=== PATIENT | male | born 1960 | race Caucasian/White ===

== ENCOUNTER 2018-12-08 14:02 | Emergency (ER) | payer MEDICAID ==
[~2018-12-08] VITALS: Ht 177.8 cm; Wt 102.1 kg
--- NOTE | 2018-12-08 14:17 | NUR ---
PT IS IN ROOM #2B. DR SHIRLEY EVALUATED THE PT.
[2018-12-08] MEDS ORDERED: IBUPROFEN 600 MG TABLET ONE (14:24)
[2018-12-08] MEDS ORDERED: ACETAMINOPHEN ES 500 MG TABLET ONE (14:24)
[2018-12-08] MEDS ORDERED: IBUPROFEN 600 MG TABLET PO ONE (14:30)
[2018-12-08] MEDS ORDERED: ACETAMINOPHEN ES 500 MG TABLET PO ONE (14:30)
--- NOTE | 2018-12-08 15:10 | NUR ---
PT WAS D/C'd TO HOME AFTER DR SHIRLEY EVALUATION. D/C ISTRUCTIONS GIVEN TO THE PT.
[2018-12-08 15:12] VITALS: BP 142/77
== END 2018-12-08 15:12 | disposition home or self-care (01) ==
LOC: ER 14:02
DX: M71.561 Other bursitis, not elsewhere classified, right knee (principal)
CPT/HCPCS: A4663; A9150

== ENCOUNTER 2020-08-08 12:25 | Inpatient (IN) | payer MEDICAID, OTHER ==
[~2020-08-08] VITALS: Ht 177.8 cm; Wt 102.1 kg
[2020-08-08] MEDS ORDERED: GENTAMICIN SULFATE INJ 80 MG in IV DEXTROSE 5% 100 ML IV ONE (13:00)
[2020-08-08] MEDS ORDERED: VANCOMYCIN IV 1,000 MG in IV DEXTROSE 5% 250 ML IV ONE (13:00)
[2020-08-08] MEDS ORDERED: IOHEXOL 300MG/ML 100 ML INFUS..BTL ONE (13:04)
[2020-08-08] MEDS ORDERED: SWABABLE VALVE TRANSFER SET EA MC ONE (13:04)
[2020-08-08] MEDS ORDERED: IV NORMAL SALINE 250 ML IV ONE (13:04)
[2020-08-08] MEDS ORDERED: VANCOMYCIN IV 200 ML ONE (13:29)
[2020-08-08] MEDS ORDERED: GENTAMICIN SULFATE 80 MG/2 ML VIAL ONE (13:30)
--- NOTE | 2020-08-08 13:47 | NUR ---
Pt is in room #1a. dr Dozier evaluated the pt.
[2020-08-08 14:13] LABS: BILIRUBIN,DIRECT 0.2 mg/dL (0.0-0.2); BILIRUBIN,TOTAL 0.4 mg/dL (0.2-1.0); CREATININE 1.7 mg/dL (0.6-1.3); POTASSIUM 3.5 mmol/L (3.5-5.1)
[2020-08-08 14:28] LABS: BASOPHILS % (AUTO) 0.2 % (0.0-2.0); EOSINOPHILS % (AUTO) 0.3 % (0.0-7.0); HEMATOCRIT 45.9 % (36.7-47.1); HEMOGLOBIN 15.6 g/dL (12.5-16.3); LYMPHOCYTES # (AUTO) 0.7 K/uL (20.0-40.0); LYMPHOCYTES % (AUTO) 7.9 % (20.5-51.5); MEAN CORPUSCULAR HEMOGLOBIN 31.1 uug (23.8-33.4); MEAN CORPUSCULAR HGB CONC 34 g/dL (32.5-36.3); MEAN CORPUSCULAR VOLUME 91.3 fL (73.0-96.2); MONOCYTES # (AUTO) 0.7 K/uL (2.0-10.0); MONOCYTES % (AUTO) 8.1 % (0.0-11.0); NEUTROPHILS # (AUTO) 7.3 K/uL (1.8-8.9); NEUTROPHILS % (AUTO) 83.5 % (38.5-71.5); PLATELET COUNT (AUTO) 221 K/uL (152-348); RED BLOOD CELL COUNT(AUTO) 5.03 MIL/uL (4.06-5.63); WHITE BLOOD COUNT (AUTO) 8.8 K/uL (3.6-10.2)
[2020-08-08] MEDS ORDERED: IV NORMAL SALINE 1000 ML BAG IV ONE (14:45)
[2020-08-08] MEDS ORDERED: ACETAMINOPHEN 325 MG TABLET PO PRN (17:00)
[2020-08-08] MEDS ORDERED: ENOXAPARIN SODIUM 30 MG/0.3 ML DISP.SYRIN SUBCUT SCH (17:00)
[2020-08-08] MEDS ORDERED: ONDANSETRON 4 MG/2 ML VIAL IV PRN (17:00)
[2020-08-08] MEDS ORDERED: MORPHINE SULFATE 2 MG/1 ML DISP.SYRIN IV PRN (17:00)
[2020-08-08] MEDS ORDERED: ZOLPIDEM 5 MG TABLET PO PRN (17:00)
[2020-08-08] MEDS ORDERED: HYDROCODONE/APAP 5-325MG TABLET PO PRN (17:00)
[2020-08-08] MEDS ORDERED: ENOXAPARIN SODIUM 30 MG/0.3 ML DISP.SYRIN ONE (17:09)
--- NOTE | 2020-08-08 21:26 | NUR ---
transfered to 3rd floor med surg via wheelchair with no distress noted.
[2020-08-08 21:30] VITALS: BP 116/64
[2020-08-08] MEDS ORDERED: PIPERACILLIN SODIUM/TAZOBACTAM 3.375 G in IV DEXTROSE 5% 50 ML IV SCH (22:00)
[2020-08-08] MEDS: IV 1/2NS 1000 ML 1,000 ML IV PRN (22:34)
[2020-08-08] MEDS: DOCUSATE SODIUM 100 MG CAPSULE PO SCH (22:39)
[2020-08-08] MEDS: ACIDOPHILUS/BULGARICUS CHEW TAB PO SCH (22:39)
[2020-08-08] MEDS ORDERED: PIPERACILLIN/TAZOBACTAM/D5W 100 ML IV ONE (22:46)
[2020-08-08] MEDS: PIPERACILLIN SODIUM/TAZOBACTAM 3.375 G in IV DEXTROSE 5% 50 ML IV SCH (22:49)
--- NOTE | 2020-08-08 23:21 | NUR ---
Pt arrived in the unit at 2130. No acute distress noted. Denies pain/ discomfort. Due meds given as ordered. IV on right forearm #18, running 1/2 NS 80cc/hr. On zosyn. Pt has right leg cellulitis. Cleansed and wound care, dressing change done. Pertinent assessment done. Pictures taken. Oriented to room and equipment. Safety measures maintained. Call light and personal items within reach. Will continue to monitor.
[2020-08-09 03:45] LABS: *BILIRUBIN,URIN NEGATIVE (NEGATIVE); *BLOOD, URINE TRACE (NEGATIVE); *CLARITY,URINE CLEAR (CLEAR); *COLOR,URINE YELLOW (YELLOW); *KETONES,URINE NEGATIVE (NEGATIVE); LEUKOCYTE ESTERASE ,URINE NEGATIVE (NEGATIVE); NITRITE, URINE NEGATIVE (NEGATIVE); PH,URINE 5.5 (5.0-8.0); UGLUCOSE NEGATIVE (NEGATIVE)
[2020-08-09 03:55] LABS: BACTERIA,URINE NONE SEEN /HPF (NONE SEEN); MUCUS,URINE FEW /LPF (0-FEW); SQUAMOUS EPITHELIAL CELL,UR FEW /HPF (NONE SEEN); URINE AMORPHOUS URATE FEW /HPF; WBC,URINE 0-3 /HPF (0-3)
[2020-08-09 04:00] VITALS: BP 118/79
[2020-08-09] MEDS: PANTOPRAZOLE SODIUM 40 MG TABLET.DR PO SCH (06:08)
[2020-08-09] MEDS: PIPERACILLIN SODIUM/TAZOBACTAM 3.375 G in IV DEXTROSE 5% 50 ML IV SCH ×3 (06:08→21:11)
--- NOTE | 2020-08-09 06:23 | NUR ---
Pt slept comfortably at night. All needs attended to promptly. No acute distress noted. Will endorse accordingly.
[2020-08-09 06:43] LABS: ALANINE AMINOTRANSFERASE 27 U/L (16-63); ALKALINE PHOSPHATASE 56 U/L (50-136); ASPARTATE AMINOTRANSFERASE 23 U/L (15-37); BASOPHILS % (AUTO) 0.5 % (0.0-2.0); BILIRUBIN,TOTAL 0.4 mg/dL (0.2-1.0); CARBON DIOXIDE 27 mmol/L (21-32); CHLORIDE 102 mmol/L (98-107); CHOLESTEROL 138 mg/dL (<200); CREATININE 1.3 mg/dL (0.6-1.3); EOSINOPHILS # (AUTO) 0.1 K/uL (0.0-0.7); EOSINOPHILS % (AUTO) 1.8 % (0.0-7.0); GLUCOSE 95 mg/dL (74-106); HEMATOCRIT 43.1 % (36.7-47.1); HEMOGLOBIN 14.7 g/dL (12.5-16.3); LYMPHOCYTES # (AUTO) 1.1 K/uL (20.0-40.0); LYMPHOCYTES % (AUTO) 18.1 % (20.5-51.5); MAGNESIUM 2.2 mg/dL (1.8-2.4); MEAN CORPUSCULAR HEMOGLOBIN 30.9 uug (23.8-33.4); MEAN CORPUSCULAR HGB CONC 34 g/dL (32.5-36.3); MEAN CORPUSCULAR VOLUME 90.8 fL (73.0-96.2); MONOCYTES # (AUTO) 0.7 K/uL (2.0-10.0); MONOCYTES % (AUTO) 11.3 % (0.0-11.0); NEUTROPHILS # (AUTO) 4.1 K/uL (1.8-8.9); NEUTROPHILS % (AUTO) 68.3 % (38.5-71.5); PHOSPHOROUS 3.4 mg/dL (2.5-4.9); PLATELET COUNT (AUTO) 213 K/uL (152-348); POTASSIUM 3.6 mmol/L (3.5-5.1); RED BLOOD CELL COUNT(AUTO) 4.74 MIL/uL (4.06-5.63); TOTAL PROTEIN, SERUM 7.4 g/dL (6.4-8.2); TRIGLYCERIDES 153 MG/DL (30-150); UREA NITROGEN, BLOOD 26 mg/dL (7-18)
[2020-08-09 06:46] LABS: HDL CHOLESTEROL < 10 mg/dL (40-60)
[2020-08-09 06:52] LABS: THYROID STIMULATING HORMONE 2.584 mIU/mL (0.358-3.740)
[2020-08-09] MEDS: ACIDOPHILUS/BULGARICUS CHEW TAB PO SCH ×2 (09:48→20:05)
[2020-08-09] MEDS: VANCOMYCIN IV 1,000 MG in IV DEXTROSE 5% 250 ML IV SCH (10:17)
--- NOTE | 2020-08-09 11:35 | NUR ---
WOUND CARE CONSULT: PT PRESENTS WITH LARGE AREA OF REDNESS, EDEMA AND ULCERATIONS TO RT LOWER LEG, PRESENT ON ADMISSION. RECOMMEND DPM CONSULT. DR SOMERS NOTIFIED OF CONSULT REQUEST. PT IS INDEPENDENT WITH BED MOBILITY. MD IN AGREEMENT WITH PLAN OF CARE.
[2020-08-09 12:51] VITALS: BP 130/72
[2020-08-09 16:33] VITALS: BP 147/66
[2020-08-09] MEDS: DOCUSATE SODIUM 100 MG CAPSULE PO SCH (20:05)
[2020-08-09] MEDS: IV 1/2NS 1000 ML 1,000 ML IV PRN (20:09)
[2020-08-09 20:42] VITALS: BP 145/87
[2020-08-09 20:45] VITALS: BP 129/74
[2020-08-09] MEDS ORDERED: ENOXAPARIN SODIUM 40 MG/0.4 ML DISP.SYRIN SQ SCH (21:00)
[2020-08-10 00:11] LABS: *BILIRUBIN,URIN NEGATIVE (NEGATIVE); *CLARITY,URINE CLEAR (CLEAR); *COLOR,URINE YELLOW (YELLOW); *KETONES,URINE NEGATIVE (NEGATIVE); *UROBILINOGEN,URINE 0.2 E.U./dl (NORMAL); LEUKOCYTE ESTERASE ,URINE NEGATIVE (NEGATIVE); NITRITE, URINE NEGATIVE (NEGATIVE); PH,URINE 5.5 (5.0-8.0); UGLUCOSE NEGATIVE (NEGATIVE)
[2020-08-10 00:18] LABS: *URINE TOTAL PROTEIN RANDOM 12.8 mg/dL (<150/24HR)
--- NOTE | 2020-08-10 00:30 | NUR ---
Received pt resting in bed. AAO x4. No acute distress noted. Denies pain/ discomfort. Due meds given as ordered. IV on right forearm, IVF running. Safety measures maintained. Call light and personal items within reach. Will continue to monitor.
[2020-08-10 00:40] LABS: *BLOOD, URINE TRACE (NEGATIVE)
[2020-08-10] MEDS: VANCOMYCIN IV 1,000 MG in IV DEXTROSE 5% 250 ML IV SCH (01:41)
[2020-08-10 01:48] LABS: BACTERIA,URINE NONE SEEN /HPF (NONE SEEN); MUCUS,URINE FEW /LPF (0-FEW); RBC,URINE 0-3 /HPF (0-3); SQUAMOUS EPITHELIAL CELL,UR FEW /HPF (NONE SEEN); URIC ACID CRYSTALS,URINE MANY /HPF (NONE SEEN); WBC,URINE 0-3 /HPF (0-3)
[2020-08-10 04:17] VITALS: BP 114/80
[2020-08-10] MEDS: PIPERACILLIN SODIUM/TAZOBACTAM 3.375 G in IV DEXTROSE 5% 50 ML IV SCH ×2 (05:16→12:51)
[2020-08-10] MEDS: PANTOPRAZOLE SODIUM 40 MG TABLET.DR PO SCH (06:42)
[2020-08-10 07:20] LABS: CREATININE 1.2 mg/dL (0.6-1.3); POTASSIUM 3.8 mmol/L (3.5-5.1)
[2020-08-10] MEDS: ACIDOPHILUS/BULGARICUS CHEW TAB PO SCH (08:13)
[2020-08-10 11:15] VITALS: BP 148/78
[2020-08-10] MEDS ORDERED: DOCU100C36 PO (14:12)
[2020-08-10] MEDS ORDERED: LEVO750T46 PO (14:12)
[2020-08-10] MEDS ORDERED: DOXY100C41 PO (14:12)
[2020-08-10] MEDS ORDERED: ACID1TAB4 PO (14:12)
[2020-08-10] MEDS ORDERED: TAMS-3 PO (14:16)
[2020-08-10 15:32] VITALS: BP 146/84
--- NOTE | 2020-08-10 18:39 | NUR ---
Dressing change education and teaching done with pt. Pt able to return verbalized proper dressing change of cleanse with Betadine, apply Xeroform then apply 4x4 gauze and cover with Kerlix. IV d/c. Pt is in no acute distress. Pt to f/u with PMD and establish medical care and f/u with urologist regarding PSA elevation. PT to f/u with vaccine to primary doctor.
== END 2020-08-10 19:50 | disposition home or self-care (01) | DRG 720 ==
LOC: ER 12:25 → TRANSITION 15:46 → MEDSURG3 20:48
PROVIDERS: ADMIT Internal Medicine; ATTEND Registered Nurse
PROC: 0JBN0ZZ Excision of Right Lower Leg Subcutaneous Tissue and Fascia, Open Approach (ICD-10-PCS; principal; 2020-08-09)
DX: A41.9 Sepsis, unspecified organism (principal); L03.115 Cellulitis of right lower limb; N17.0 Acute kidney failure with tubular necrosis; E44.0 Moderate protein-calorie malnutrition; M19.90 Unspecified osteoarthritis, unspecified site; M81.0 Age-related osteoporosis without current pathological fracture; R73.9 Hyperglycemia, unspecified; E88.09 Other disorders of plasma-protein metabolism, not elsewhere classified; M71.9 Bursopathy, unspecified; N40.0 Benign prostatic hyperplasia without lower urinary tract symptoms; Z68.32 Body mass index [BMI] 32.0-32.9, adult; E66.9 Obesity, unspecified; Z20.828 Contact with and (suspected) exposure to other viral communicable diseases; F17.210 Nicotine dependence, cigarettes, uncomplicated
CPT/HCPCS: 36415; 70030-TC; 71045; 83605; 83735; 84100; 84153; 84156; 84300; 84443; 85025; 85651; 85730; 87040; 87086; 93005; A4663; G0378; J1580; J1650; J2543; J3370; J3490; J7030; J7050; J7060; Q9967

== ENCOUNTER 2020-11-08 09:32 | Inpatient (IN) | payer OTHER ==
[~2020-11-08] VITALS: Ht 177.8 cm; Wt 99.8 kg
[~2020-11-08 09:32] MED LIST: ACID1TAB4 PO; DOCU100C36 PO; DOXY100C41 PO; LEVO750T46 PO; TAMS-3 PO
[2020-11-08 10:15] LABS: BASOPHILS % (AUTO) 0.5 % (0.0-2.0); EOSINOPHILS # (AUTO) 0.1 K/uL (0.0-0.7); EOSINOPHILS % (AUTO) 0.6 % (0.0-7.0); HEMATOCRIT 40.9 % (36.7-47.1); LYMPHOCYTES # (AUTO) 0.5 K/uL (20.0-40.0); MEAN CORPUSCULAR HEMOGLOBIN 30.3 uug (23.8-33.4); MEAN CORPUSCULAR HGB CONC 34 g/dL (32.5-36.3); MEAN CORPUSCULAR VOLUME 88.8 fL (73.0-96.2); MONOCYTES # (AUTO) 0.9 K/uL (2.0-10.0); MONOCYTES % (AUTO) 10.4 % (0.0-11.0); NEUTROPHILS # (AUTO) 7.2 K/uL (1.8-8.9); NEUTROPHILS % (AUTO) 82.5 % (38.5-71.5); PLATELET COUNT (AUTO) 177 K/uL (152-348); WHITE BLOOD COUNT (AUTO) 8.8 K/uL (3.6-10.2)
[2020-11-08] MEDS ORDERED: VANCOMYCIN IV 2,000 MG in IV DEXTROSE 5% 250 ML IV ONE (10:15)
[2020-11-08] MEDS ORDERED: VANCOMYCIN IV 400 ML ONE (10:21)
[2020-11-08 10:48] LABS: CREATININE 1.4 mg/dL (0.6-1.3)
[2020-11-08] MEDS ORDERED: KETOROLAC TROMETHAMINE 15 MG INJ ONE (11:23)
[2020-11-08] MEDS ORDERED: KETOROLAC TROMETHAMINE 15 MG INJ IVP ONE (11:30)
--- NOTE | 2020-11-08 11:45 | NUR ---
Pt. admitted to [facility] , under care of MELISSA Belongs List completed
[2020-11-08] MEDS ORDERED: HYDROCODONE/APAP 5-325MG TABLET PO PRN (12:00)
[2020-11-08] MEDS ORDERED: MAGNESIUM HYDROXIDE 30 ML LIQUID UDC PO PRN (12:00)
[2020-11-08] MEDS ORDERED: MORPHINE SULFATE 2 MG/1 ML DISP.SYRIN IV PRN (12:00)
[2020-11-08] MEDS ORDERED: Z GUARD REMEDY PASTE 57 GM TUBE TOP PRN (12:00)
[2020-11-08] MEDS ORDERED: ACETAMINOPHEN 325 MG TABLET PO PRN (12:00)
[2020-11-08] MEDS ORDERED: ONDANSETRON 4 MG/2 ML VIAL IV PRN (12:00)
--- NOTE | 2020-11-08 14:47 | NUR ---
pt transfered to floor in stable condition.
--- NOTE | 2020-11-08 15:00 | NUR ---
report received from HIPOLITO Roa in ER. pt ambulatory, awake alert and oriented x4, pt has benedict lower leg cellulitis with open wounds, IV on the left FA 20g. bed in low and locked position, call light within reach, will continue with plan of care.
[2020-11-08 15:11] VITALS: BP 144/71
[2020-11-08] MEDS: IV NS 1000 ML 1,000 ML IV PRN (20:32)
[2020-11-08 20:52] VITALS: BP 138/54
[2020-11-09 04:00] VITALS: BP 134/78
--- NOTE | 2020-11-09 04:54 | NUR ---
PATIENT IS ALERT AND VERBALLY RESPONSIVE. CAN MAKE NEEDS KNOWN. PATIENT SLEPT WELL DURING THE NIGHT. PERIPHERAL LINE ON LEFT HAND DISLODGED; INSERTED 22G PERIPHERAL LINE TO RIGHT WRIST. PATIENT TOLERATED PROCEDURE WELL. WILL CONTINUE TO MONITOR PATIENT AND ATTEND TO PATIENT'S NEEDS.
[2020-11-09 05:32] LABS: BASOPHILS % (AUTO) 0.2 % (0.0-2.0); EOSINOPHILS % (AUTO) 0.2 % (0.0-7.0); HEMATOCRIT 43.6 % (36.7-47.1); HEMOGLOBIN 14.3 g/dL (12.5-16.3); LYMPHOCYTES # (AUTO) 0.8 K/uL (20.0-40.0); LYMPHOCYTES % (AUTO) 9.8 % (20.5-51.5); MEAN CORPUSCULAR HGB CONC 33 g/dL (32.5-36.3); MEAN CORPUSCULAR VOLUME 88.5 fL (73.0-96.2); MONOCYTES # (AUTO) 0.9 K/uL (2.0-10.0); MONOCYTES % (AUTO) 11.9 % (0.0-11.0); NEUTROPHILS # (AUTO) 6.1 K/uL (1.8-8.9); NEUTROPHILS % (AUTO) 77.9 % (38.5-71.5); PLATELET COUNT (AUTO) 185 K/uL (152-348); RED BLOOD CELL COUNT(AUTO) 4.92 MIL/uL (4.06-5.63); WHITE BLOOD COUNT (AUTO) 7.8 K/uL (3.6-10.2)
[2020-11-09 05:48] LABS: BILIRUBIN,TOTAL 0.4 mg/dL (0.2-1.0); CREATININE 1.3 mg/dL (0.6-1.3); MAGNESIUM 2.1 mg/dL (1.8-2.4); PHOSPHOROUS 3.2 mg/dL (2.5-4.9); TOTAL PROTEIN, SERUM 7.6 g/dL (6.4-8.2)
[2020-11-09 05:55] LABS: THYROID STIMULATING HORMONE 1.522 mIU/mL (0.358-3.740)
[2020-11-09 08:17] VITALS: BP 129/79
[2020-11-09] MEDS: NICOTINE 21 MG/24HR PATCH TD SCH (08:44)
[2020-11-09] MEDS ORDERED: TAMSULOSIN HCL 0.4 MG CAP.SR.24H PO SCH (09:00)
[2020-11-09] MEDS: VANCOMYCIN IV 1,250 MG in IV DEXTROSE 5% 250 ML IV SCH (09:01)
[2020-11-09] MEDS ORDERED: CEFTRIAXONE 1 G in IV DEXTROSE 5% 50 ML IV SCH (11:00)
[2020-11-09 11:10] VITALS: BP 142/69
[2020-11-09] MEDS: IV NS 1000 ML 1,000 ML IV PRN (14:15)
[2020-11-09 14:55] VITALS: BP 142/71
[2020-11-09 20:37] VITALS: BP 102/75
--- NOTE | 2020-11-09 23:00 | NUR ---
Received pt lying in bed. No acute distress noted. AXOX4, able to make needs known. benedict lower leg cellulitis with open wounds, IV on the Right FA 20g intact and running NS @75cc/hr. Temperature of 100.2, administered Tylenol. denies any other symptoms. Rechecked temperature 98.1. Pt is resting comfortably in bed. Safety measures maintained. Will continue to monitor.
[2020-11-10 04:00] VITALS: BP 121/58
[2020-11-10] MEDS: VANCOMYCIN IV 1,250 MG in IV DEXTROSE 5% 250 ML IV SCH ×2 (04:04→21:32)
[2020-11-10] MEDS: IV NS 1000 ML 1,000 ML IV PRN ×2 (04:34→20:00)
[2020-11-10 06:33] LABS: BASOPHILS % (AUTO) 0.3 % (0.0-2.0); EOSINOPHILS # (AUTO) 0.1 K/uL (0.0-0.7); EOSINOPHILS % (AUTO) 0.7 % (0.0-7.0); HEMATOCRIT 41.3 % (36.7-47.1); HEMOGLOBIN 13.8 g/dL (12.5-16.3); LYMPHOCYTES # (AUTO) 0.8 K/uL (20.0-40.0); LYMPHOCYTES % (AUTO) 9.3 % (20.5-51.5); MEAN CORPUSCULAR HGB CONC 33 g/dL (32.5-36.3); MEAN CORPUSCULAR VOLUME 89.7 fL (73.0-96.2); MONOCYTES # (AUTO) 1.1 K/uL (2.0-10.0); MONOCYTES % (AUTO) 13.2 % (0.0-11.0); NEUTROPHILS # (AUTO) 6.6 K/uL (1.8-8.9); NEUTROPHILS % (AUTO) 76.5 % (38.5-71.5); PLATELET COUNT (AUTO) 209 K/uL (152-348); WHITE BLOOD COUNT (AUTO) 8.7 K/uL (3.6-10.2)
[2020-11-10 06:50] LABS: CREATININE 1.3 mg/dL (0.6-1.3)
[2020-11-10] MEDS: NICOTINE 21 MG/24HR PATCH TD SCH (09:12)
[2020-11-10] MEDS: CEFTRIAXONE 2 G in IV DEXTROSE 5% 100 ML IV SCH (11:25)
[2020-11-10 11:33] VITALS: BP 140/68
--- NOTE | 2020-11-10 13:58 | NUR ---
WOUND CARE CONSULT: PT PRESENTS WITH WOUNDS, REDNESS AND EDEMA TO LOWER LEGS, PRESENT ON ADMISSION. RECOMMEND DPM CONSULT. DR SOMERS NOTIFIED OF CONSULT REQUEST. CURRENT ANITA SCORE IS 20. MD IN AGREEMENT WITH PLAN OF CARE.
[2020-11-10 16:00] VITALS: BP 137/75
--- NOTE | 2020-11-10 19:20 | NUR ---
EOSS: Pt in assigned room in bed, A&Ox4, able to verbalize needs. No acute distress, no c/o of pain/discomfort at the time. Due medications given per order, no a/r noted. All needs met. Wound care provided with wound care nurse at bedside, pt tolerated well. BL heels elevated. L FA IV patent and intact. Call light and belongings within reach. Will endorse care to overnight cashier nurse.
--- NOTE | 2020-11-10 19:45 | NUR ---
Received pt in bed, awake and verbally responsive. Able to make needs known. Pt denies any pain or discomfort. no s/s of respiratory distress. IVF infusing well. BLE wrapped with dressing, intact. Safety measures initiated, call light within reach, will continue to monitor.
[2020-11-10 20:12] VITALS: BP 127/65
[2020-11-10] MEDS ORDERED: TAMSULOSIN HCL 0.4 MG CAP.SR.24H PO SCH (21:00)
[2020-11-11 04:12] VITALS: BP 149/80
--- NOTE | 2020-11-11 06:00 | NUR ---
Pt in bed, awake and able to make needs known. non labored breathing, denies any pain or discomfort. Medications tolerated well. IVF infusing on L forearm. Safety measures maintained, call light within reach, all needs attended.
[2020-11-11 06:37] LABS: BASOPHILS % (AUTO) 0.2 % (0.0-2.0); EOSINOPHILS # (AUTO) 0.1 K/uL (0.0-0.7); EOSINOPHILS % (AUTO) 0.8 % (0.0-7.0); HEMATOCRIT 42.2 % (36.7-47.1); LYMPHOCYTES # (AUTO) 1.1 K/uL (20.0-40.0); LYMPHOCYTES % (AUTO) 9.9 % (20.5-51.5); MEAN CORPUSCULAR HEMOGLOBIN 29.6 uug (23.8-33.4); MEAN CORPUSCULAR HGB CONC 33 g/dL (32.5-36.3); MEAN CORPUSCULAR VOLUME 89.1 fL (73.0-96.2); MONOCYTES % (AUTO) 8.8 % (0.0-11.0); NEUTROPHILS # (AUTO) 8.8 K/uL (1.8-8.9); NEUTROPHILS % (AUTO) 80.3 % (38.5-71.5); PLATELET COUNT (AUTO) 244 K/uL (152-348); RED BLOOD CELL COUNT(AUTO) 4.73 MIL/uL (4.06-5.63); WHITE BLOOD COUNT (AUTO) 10.9 K/uL (3.6-10.2)
[2020-11-11 06:43] LABS: CREATININE 1.3 mg/dL (0.6-1.3); POTASSIUM 4.2 mmol/L (3.5-5.1)
--- NOTE | 2020-11-11 07:30 | NUR ---
Patient received in bed awake alert and oriented times 4. No sign of distress noted. Patient is on room air, denies any pain. Safety measures in place. Will continue to monitor.
[2020-11-11] MEDS: NICOTINE 21 MG/24HR PATCH TD SCH (08:48)
[2020-11-11] MEDS ORDERED: VANCOMYCIN IV 1,250 MG in IV DEXTROSE 5% 250 ML IV SCH (09:00)
[2020-11-11] MEDS ORDERED: SULF1TAB48 PO (11:10)
[2020-11-11] MEDS: CEFTRIAXONE 2 G in IV DEXTROSE 5% 100 ML IV SCH (12:02)
[2020-11-11 12:50] VITALS: BP 141/82
--- NOTE | 2020-11-11 13:00 | NUR ---
Discharge photos taken and dressing change completed. Will continue to monitor
--- NOTE | 2020-11-11 15:14 | NUR ---
Patient discharged home with home health. Belongings list competed and signed. All paper work signed and copy given to patient. Prescriptions given to patient including all belongings. All medications given as ordered. Dressing change completed. Patient teaching completed.
== END 2020-11-11 15:10 | disposition home health service (06) | DRG 383 ==
LOC: ER 09:32 → MEDSURG3 14:17
PROVIDERS: ADMIT Nurse Practitioner Acute Care; ATTEND Nurse Practitioner Acute Care
DX: L03.115 Cellulitis of right lower limb (principal); L03.116 Cellulitis of left lower limb; N17.0 Acute kidney failure with tubular necrosis; E66.01 Morbid (severe) obesity due to excess calories; Z68.31 Body mass index [BMI] 31.0-31.9, adult; Z20.822 Contact with and (suspected) exposure to COVID-19; E02 Subclinical iodine-deficiency hypothyroidism; Z59.0 Homelessness; Z87.11 Personal history of peptic ulcer disease; Z87.442 Personal history of urinary calculi; N40.0 Benign prostatic hyperplasia without lower urinary tract symptoms; D68.69 Other thrombophilia; M19.90 Unspecified osteoarthritis, unspecified site; M81.0 Age-related osteoporosis without current pathological fracture; F17.210 Nicotine dependence, cigarettes, uncomplicated; I73.9 Peripheral vascular disease, unspecified; R73.9 Hyperglycemia, unspecified
CPT/HCPCS: 36415; 71045; 76770; 83735; 83970; 84100; 84443; 85025; 85651; 86140; 87040; 93307; A4663; G0378; J0696; J1885; J3370; J7030; J7060

== ENCOUNTER 2021-01-06 21:36 | Emergency (ER) | payer OTHER ==
[~2021-01-06] VITALS: Ht 177.8 cm; Wt 99.8 kg
[~2021-01-06 21:36] MED LIST changes: -ACID1TAB4 PO; -DOCU100C36 PO; -DOXY100C41 PO; -LEVO750T46 PO; +SULF1TAB48 PO
--- NOTE | 2021-01-06 21:57 | NUR ---
DR Rodriguez into eval patient.
--- NOTE | 2021-01-06 22:14 | NUR ---
energy and conservation technician into do US.
[2021-01-06] MEDS ORDERED: HYDROMORPHONE 1 MG/1 ML DISP.SYRIN IV ONE (22:30)
[2021-01-06] MEDS ORDERED: PIPERACILLIN SODIUM/TAZOBACTAM 3.375 G in IV DEXTROSE 5% 50 ML IV ONE (22:30)
[2021-01-06] MEDS ORDERED: diphenhydrAMINE 50 MG/1 ML VIAL IV ONE (22:30)
[2021-01-06] MEDS ORDERED: VANCOMYCIN 1G/D5W 200 ML PIGGYBACK IV ONE (22:30)
[2021-01-06] MEDS ORDERED: SULFAMETH/TRIMETH 800/160 MG TABLET PO ONE (22:45)
[2021-01-06] MEDS ORDERED: SULFAMETH/TRIMETH 800/160 MG TABLET ONE (22:48)
[2021-01-06] MEDS ORDERED: SULF1TAB48 PO (22:58)
--- NOTE | 2021-01-06 22:58 | NUR ---
Dressed RLE wound as ordered
[2021-01-06 23:02] VITALS: BP 139/88
--- NOTE | 2021-01-06 23:02 | NUR ---
Patient discharged to home in stable condition. Written and verbal after care instructions given. Patient verbalizes understanding of instructions. Stressed follow up or return to ER for worsening s/s.
== END 2021-01-06 23:03 | disposition home or self-care (01) ==
LOC: ER 21:37
DX: L03.115 Cellulitis of right lower limb (principal); L97.819 Non-pressure chronic ulcer of other part of right lower leg with unspecified severity; F17.210 Nicotine dependence, cigarettes, uncomplicated; N40.0 Benign prostatic hyperplasia without lower urinary tract symptoms
CPT/HCPCS: A4663

== ENCOUNTER 2021-02-25 00:15 | Emergency (ER) | payer OTHER ==
[~2021-02-25] VITALS: Ht 177.8 cm; Wt 104.3 kg
--- NOTE | 2021-02-25 00:29 | NUR ---
Dr. Miranda at bedside for mse.
--- NOTE | 2021-02-25 00:33 | NUR ---
Pt came in from home today for bilateral lower leg wounds that he has had for the last year. Pt states they started last year and resolved with abx treatment but recently returned. 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 Pt has had several rounds of antibiotics for them but they haven't resolved, his skin has become more swollen and red. Pt is not in distress, denies any other symptoms.
[2021-02-25 00:45] LABS: HEMATOCRIT 39.4 % (36.7-47.1); MEAN CORPUSCULAR HEMOGLOBIN 29.9 uug (23.8-33.4); MEAN CORPUSCULAR VOLUME 88.6 fL (73.0-96.2); PLATELET COUNT (AUTO) 225 K/uL (152-348)
[2021-02-25] MEDS ORDERED: HYDROMORPHONE HCL 2 MG TABLET PO ONE (00:45)
[2021-02-25] MEDS ORDERED: SULFAMETH/TRIMETH 800/160 MG TABLET PO ONE (00:45)
[2021-02-25] MEDS ORDERED: HYDROMORPHONE HCL 2 MG TABLET ONE (00:48)
[2021-02-25] MEDS ORDERED: SULFAMETH/TRIMETH 800/160 MG TABLET ONE (00:48)
[2021-02-25 00:58] LABS: CREATININE 1.4 mg/dL (0.6-1.3)
[2021-02-25] MEDS ORDERED: SULF1TAB48 PO (01:00)
[2021-02-25] MEDS ORDERED: HYDR-3980 PO (01:02)
[2021-02-25 01:11] LABS: BILIRUBIN,TOTAL 0.3 mg/dL (0.2-1.0)
--- NOTE | 2021-02-25 01:11 | NUR ---
US at bedside
[2021-02-25] MEDS ORDERED: KETOROLAC TROMETHAMINE 30 MG INJ ONE (01:13)
[2021-02-25] MEDS ORDERED: KETOROLAC TROMETHAMINE 30 MG INJ IM ONE (01:15)
--- NOTE | 2021-02-25 02:30 | NUR ---
Patient discharged to home in stable condition. Written and verbal after care instructions given. Patient verbalizes understanding of instructions. Stressed follow up or return to ER for worsening s/s. Patient out of ER with steady gait, no acute signs of distress, VSS, all belongings taken, provided with copies of lab results. Wound cleaned with betadine, dressed with sterile gauze and nonadherent dressing.
[2021-02-25 03:06] VITALS: BP 138/79
== END 2021-02-25 02:35 | disposition home or self-care (01) ==
LOC: ER 00:16
DX: L97.821 Non-pressure chronic ulcer of other part of left lower leg limited to breakdown of skin (principal); L97.811 Non-pressure chronic ulcer of other part of right lower leg limited to breakdown of skin; R60.0 Localized edema; F17.210 Nicotine dependence, cigarettes, uncomplicated; N40.0 Benign prostatic hyperplasia without lower urinary tract symptoms; R03.0 Elevated blood-pressure reading, without diagnosis of hypertension
CPT/HCPCS: 36415; 80053; 83880; 85025; 93970; 96372; 99284; J1885; A4663